=== PATIENT | female | born 1950 | race Caucasian/White ===

== ENCOUNTER 2021-11-10 20:26 | Inpatient (IN) | payer OTHER, MEDICARE ==
[2021-11-10 20:52] VITALS: BMI 28.0
[2021-11-10] MEDS ORDERED: ACETAMINOPHEN 1000 MG/100 ML BAG IVPB ONE (20:56)
[2021-11-10] MEDS ORDERED: DEXAMETHASONE SOD PHOSPHATE 10 MG/1 ML VIAL IVPUSH ONE (21:16)
[2021-11-10] MEDS ORDERED: DEXAMETHASONE SOD PHOSPHATE 10 MG/1 ML VIAL ONE (21:32)
[2021-11-10] MEDS ORDERED: ACETAMINOPHEN INJECTION 100 ML IVPB ONE (21:32)
[2021-11-10] MEDS ORDERED: VANCOMYCIN 1,000 MG in DEXTROSE 5%-WATER - 250 ML IVPB ONE (22:06)
[2021-11-10] MEDS ORDERED: PIPERACILLIN/TAZOB 4.5 GM 4.5 GM in DEXTROSE 5%-WATER 100 ML IVPB ONE (22:07)
[2021-11-10 22:17] LABS: VENOUS BASE EXCESS 2.7 mmol/L (-2-2); VENOUS O2 SATURATION 72.3 % (70-80); VENOUS PCO2 39.7 mmHg (38-52); VENOUS PH 7.448 (7.310-7.410)
[2021-11-10 22:18] LABS: BASO % 1.4 % (0-2.0); EOS % 0.5 % (0-4.5); HEMATOCRIT 36.1 % (32.4-45.2); HEMOGLOBIN 12.3 GM/dL (10.7-15.3); LYMPH % 44.7 % (8-40); MCH 30.8 pg (25.7-33.7); MEAN CELL VOLUME 90.6 fl (80-96); MEAN PLT VOLUME 8.1 fl (7.5-11.1); MONO % 26.9 % (3.8-10.2); NEUT % 26.5 % (42.8-82.8); PLATELET COUNT 201 10^3/uL (134-434); RBC 3.99 M/mm3 (3.60-5.2); RDW 13.9 % (11.6-15.6)
[2021-11-10 22:25] LABS: WHITE BLOOD COUNT 1.5 K/mm3 (4.0-10.0)
[2021-11-10] MEDS ORDERED: CEFEPIME 2 GM/100 ML BAG IVPB ONE (22:25)
[2021-11-10] MEDS ORDERED: CEFEPIME HCL/D5W 2 GM/50 ML BAG IVPB ONE (22:25)
[2021-11-10] MEDS ORDERED: VANCOMYCIN/WATER FOR INJ (PEG) 1,000 MG/200 ML BAG IVPB ONE ×2 (22:25)
[2021-11-10 22:27] LABS: INR 1.09 (0.83-1.09); PROTHROMBIN TIME (PATIENT) 12.5 SEC (9.7-13.0)
[2021-11-10] MEDS ORDERED: SODIUM CHLORIDE 0.9% 500 ML INFUS.BAG IV ONE ×2 (22:27→23:24)
[2021-11-10 22:30] LABS: ACTIVATED PTT 33.1 SECONDS (25.2-36.5)
[2021-11-10 22:44] LABS: CALCIUM 8.1 mg/dL (8.5-10.1)
[2021-11-10 22:45] LABS: ALBUMIN 2.8 g/dl (3.4-5.0); BLOOD UREA NITROGEN 15.4 mg/dL (7-18)
[2021-11-10 22:48] LABS: BILIRUBIN,DIRECT 0.1 mg/dL (0.0-0.2); CREATININE 0.4 mg/dL (0.55-1.3)
[2021-11-10 22:49] LABS: TOT PROT 6.8 g/dl (6.4-8.2)
[2021-11-10 22:50] LABS: BILIRUBIN,TOTAL 0.4 mg/dL (0.2-1)
[2021-11-10 22:56] LABS: ANISOCYTOSIS 1+; MACROCYTOSIS 0
[2021-11-10 23:51] LABS: EPI CELLS >36 /uL (0-25.1); HYALINE CASTS 9 /uL (0-3.1); URINE APPEARANCE CLOUDY; URINE BACTERIA 2068 /uL (0-1359); URINE BILIRUBIN NEGATIVE (NEGATIVE); URINE COLOR YELLOW; URINE GLUCOSE (UA) NEGATIVE (NEGATIVE); URINE KETONE NEGATIVE (NEGATIVE); URINE LEUK ESTERASE NEGATIVE (NEGATIVE); URINE NITRITE NEGATIVE (NEGATIVE); URINE PROTEIN 2+ (NEGATIVE); URINE RBC 2899 /uL (0-23.9); URINE WBC 51 /uL (0-25.8)
[2021-11-11] MEDS ORDERED: FLUORIDE DT PRN (01:42)
[2021-11-11] MEDS ORDERED: [UNRECOGNIZED DRUG - OTHER] PO SCH (01:45)
[2021-11-11 02:13] LABS: HEMATOCRIT 32.4 % (32.4-45.2); HEMOGLOBIN 10.9 GM/dL (10.7-15.3); MCH 30.7 pg (25.7-33.7); MCHC 33.5 g/dl (32.0-36.0); MEAN CELL VOLUME 91.5 fl (80-96); MEAN PLT VOLUME 8.4 fl (7.5-11.1); PLATELET COUNT 170 10^3/uL (134-434); RBC 3.54 M/mm3 (3.60-5.2)
[2021-11-11 02:16] LABS: WHITE BLOOD COUNT 1.4 K/mm3 (4.0-10.0)
[2021-11-11] MEDS ORDERED: REMDESIVIR 200 MG in SODIUM CHLORIDE 250 ML IVPB ONE (03:30)
[2021-11-11] MEDS ORDERED: SODIUM CHLORIDE 0.9% 1000 ML INFUS.BAG IV ONE (04:00)
[2021-11-11 04:56] LABS: ANISOCYTOSIS 1+; MACROCYTOSIS 0; OVALOCYTE 2+; TEAR DROP CELLS 1+
[2021-11-11] MEDS ORDERED: BACLOFEN 10 MG TABLET (FP) ONE (06:19)
[2021-11-11] MEDS ORDERED: GABAPENTIN 300 MG CAPSULE ONE (06:19)
[2021-11-11] MEDS: BACLOFEN 10 MG TABLET (FP) PO SCH ×3 (06:26→21:28)
[2021-11-11] MEDS: GABAPENTIN 300 MG CAPSULE PO SCH ×3 (06:26→21:28)
[2021-11-11 07:14] LABS: HEMATOCRIT 37.4 % (32.4-45.2); HEMOGLOBIN 12.3 GM/dL (10.7-15.3); MCH 30.4 pg (25.7-33.7); MCHC 32.9 g/dl (32.0-36.0); MEAN CELL VOLUME 92.2 fl (80-96); MEAN PLT VOLUME 8.7 fl (7.5-11.1); PLATELET COUNT 165 10^3/uL (134-434); RBC 4.06 M/mm3 (3.60-5.2); RDW 13.7 % (11.6-15.6)
[2021-11-11 07:26] LABS: WHITE BLOOD COUNT 1.3 K/mm3 (4.0-10.0)
[2021-11-11 07:46] LABS: ALBUMIN 2.5 g/dl (3.4-5.0); BLOOD UREA NITROGEN 13.7 mg/dL (7-18); CALCIUM 7.4 mg/dL (8.5-10.1); MAGNESIUM 1.9 mg/dL (1.8-2.4)
[2021-11-11 07:49] LABS: CREATININE 0.3 mg/dL (0.55-1.3); PHOSPHOROUS 2.9 mg/dL (2.5-4.9)
[2021-11-11 07:51] LABS: BILIRUBIN,TOTAL 0.4 mg/dL (0.2-1); TOT PROT 6.2 g/dl (6.4-8.2)
[2021-11-11] MEDS ORDERED: VANCOMYCIN/WATER FOR INJ (PEG) 1,000 MG/200 ML BAG IVPB ONE (10:00)
[2021-11-11] MEDS ORDERED: CEFEPIME 2 GM in DEXTROSE 5%-WATER - 100 ML IVPB ONE ×2 (10:00→11:15)
[2021-11-11] MEDS ORDERED: VANCOMYCIN 1 GM in D5W (PRE-DOCKED) 1,000 MG/250 ML IVPB ONE (10:00)
[2021-11-11 10:57] LABS: ANISOCYTOSIS 2+; MACROCYTOSIS 0; TEAR DROP CELLS 1+
[2021-11-11] MEDS ORDERED: CEFEPIME 2 GM in DEXTROSE 5%-WATER 100 ML IVPB ONE (11:15)
[2021-11-11] MEDS ORDERED: CEFEPIME HCL 2 GM VIAL (RESTRICTED TO ID) ONE ×2 (11:29→21:06)
[2021-11-11] MEDS ORDERED: DEXTROSE 5%-WATER 100 ML IVPB ONE ×2 (11:30→21:06)
[2021-11-11] MEDS: DEXAMETHASONE SOD PHOSPHATE 10 MG/1 ML VIAL IVPUSH SCH (11:49)
[2021-11-11] MEDS: ENOXAPARIN NA (PORCINE) 40 MG/0.4 ML DISP.SYRIN SQ SCH (11:49)
[2021-11-11] MEDS: PANTOPRAZOLE SODIUM 40 MG VIAL IVPUSH SCH (11:49)
[2021-11-11] MEDS: FLUoxetine HCL 20 MG CAPSULE PO SCH ×2 (12:30→13:50)
[2021-11-11] MEDS ORDERED: VANCOMYCIN 1 GM/200 ML PREMIX BAG IVPB ONE (21:07)
[2021-11-11] MEDS: ATORVASTATIN CA 10 MG TABLET (FP) PO SCH (21:27)
[2021-11-11] MEDS: clonazePAM 2 MG TABLET PO SCH (21:28)
[2021-11-11] MEDS: CEFEPIME 2 GM in DEXTROSE 5%-WATER 100 ML IVPB SCH (21:28)
[2021-11-12] MEDS ORDERED: DEXTROSE 5%-WATER 100 ML IVPB ONE ×3 (02:44→21:08)
[2021-11-12] MEDS ORDERED: CEFEPIME HCL 2 GM VIAL (RESTRICTED TO ID) ONE ×3 (02:44→21:08)
[2021-11-12] MEDS: CEFEPIME 2 GM in DEXTROSE 5%-WATER 100 ML IVPB SCH ×3 (04:13→21:16)
[2021-11-12] MEDS: GABAPENTIN 300 MG CAPSULE PO SCH ×3 (05:14→21:16)
[2021-11-12] MEDS: BACLOFEN 10 MG TABLET (FP) PO SCH ×3 (05:14→21:16)
[2021-11-12] MEDS ORDERED: VANCOMYCIN 1 GM/200 ML PREMIX BAG IVPB ONE ×2 (09:00→21:59)
[2021-11-12 09:44] LABS: HEMATOCRIT 36.9 % (32.4-45.2); HEMOGLOBIN 12.5 GM/dL (10.7-15.3); MCH 30.8 pg (25.7-33.7); MCHC 33.8 g/dl (32.0-36.0); MEAN CELL VOLUME 91.2 fl (80-96); MEAN PLT VOLUME 8.5 fl (7.5-11.1); PLATELET COUNT 216 10^3/uL (134-434); RBC 4.04 M/mm3 (3.60-5.2); RDW 13.7 % (11.6-15.6); WHITE BLOOD COUNT 2.9 K/mm3 (4.0-10.0)
[2021-11-12 10:00] LABS: CALCIUM 8.2 mg/dL (8.5-10.1)
[2021-11-12] MEDS ORDERED: REMDESIVIR 100 MG in SODIUM CHLORIDE 270 ML IVPB SCH (10:00)
[2021-11-12 10:01] LABS: BLOOD UREA NITROGEN 19.6 mg/dL (7-18)
[2021-11-12 10:04] LABS: CREATININE 0.5 mg/dL (0.55-1.3)
[2021-11-12] MEDS: DEXAMETHASONE SOD PHOSPHATE 10 MG/1 ML VIAL IVPUSH SCH (10:35)
[2021-11-12] MEDS: ENOXAPARIN NA (PORCINE) 40 MG/0.4 ML DISP.SYRIN SQ SCH (10:35)
[2021-11-12] MEDS: PANTOPRAZOLE SODIUM 40 MG VIAL IVPUSH SCH (10:35)
[2021-11-12] MEDS: FLUoxetine HCL 20 MG CAPSULE PO SCH (10:35)
[2021-11-12] MEDS: TIZANIDINE HCL 4 MG TABLET PO PRN (10:36)
[2021-11-12] MEDS: REMDESIVIR 100 MG in SODIUM CHLORIDE 250 ML IVPB SCH (10:37)
[2021-11-12] MEDS: clonazePAM 2 MG TABLET PO SCH (21:16)
[2021-11-12] MEDS: ATORVASTATIN CA 10 MG TABLET (FP) PO SCH (21:16)
[2021-11-13] MEDS: MELATONIN 5 MG TABLETS PO PRN ×2 (00:08→21:05)
[2021-11-13] MEDS ORDERED: DEXTROSE 5%-WATER 100 ML IVPB ONE ×3 (03:34→20:11)
[2021-11-13] MEDS ORDERED: CEFEPIME HCL 2 GM VIAL (RESTRICTED TO ID) ONE ×3 (03:34→20:11)
[2021-11-13] MEDS: CEFEPIME 2 GM in DEXTROSE 5%-WATER 100 ML IVPB SCH ×3 (03:46→20:54)
[2021-11-13] MEDS: BACLOFEN 10 MG TABLET (FP) PO SCH ×3 (05:52→21:03)
[2021-11-13] MEDS: GABAPENTIN 300 MG CAPSULE PO SCH ×3 (05:52→21:03)
[2021-11-13 09:16] LABS: HEMATOCRIT 34.8 % (32.4-45.2); HEMOGLOBIN 11.9 GM/dL (10.7-15.3); MCH 30.9 pg (25.7-33.7); MCHC 34.3 g/dl (32.0-36.0); MEAN CELL VOLUME 90.2 fl (80-96); MEAN PLT VOLUME 8.2 fl (7.5-11.1); PLATELET COUNT 211 10^3/uL (134-434); RBC 3.85 M/mm3 (3.60-5.2); RDW 14.2 % (11.6-15.6); WHITE BLOOD COUNT 4.1 K/mm3 (4.0-10.0)
[2021-11-13] MEDS ORDERED: VANCOMYCIN 1 GM in D5W (PRE-DOCKED) 1,000 MG/250 ML IVPB SCH (10:00)
[2021-11-13] MEDS: DEXAMETHASONE SOD PHOSPHATE 10 MG/1 ML VIAL IVPUSH SCH (10:22)
[2021-11-13] MEDS: ENOXAPARIN NA (PORCINE) 40 MG/0.4 ML DISP.SYRIN SQ SCH (10:22)
[2021-11-13] MEDS: REMDESIVIR 100 MG in SODIUM CHLORIDE 250 ML IVPB SCH (10:23)
[2021-11-13] MEDS: TIZANIDINE HCL 4 MG TABLET PO PRN (10:23)
[2021-11-13] MEDS: FLUoxetine HCL 20 MG CAPSULE PO SCH (10:23)
[2021-11-13] MEDS: PANTOPRAZOLE SODIUM 40 MG VIAL IVPUSH SCH (10:23)
[2021-11-13] MEDS ORDERED: VANCOMYCIN/WATER FOR INJ (PEG) 1,000 MG/200 ML BAG IVPB SCH ×2 (10:30→22:30)
[2021-11-13 10:44] LABS: CALCIUM 8.9 mg/dL (8.5-10.1)
[2021-11-13 10:45] LABS: BLOOD UREA NITROGEN 19.8 mg/dL (7-18)
[2021-11-13 10:48] LABS: CREATININE 0.4 mg/dL (0.55-1.3)
[2021-11-13] MEDS: clonazePAM 2 MG TABLET PO SCH (21:03)
[2021-11-13] MEDS: ATORVASTATIN CA 10 MG TABLET (FP) PO SCH (21:03)
[2021-11-13] MEDS: ACETAMINOPHEN 325 MG TABLET (FP) PO PRN (21:05)
[2021-11-14] MEDS ORDERED: DEXTROSE 5%-WATER 100 ML IVPB ONE ×3 (02:36→21:08)
[2021-11-14] MEDS ORDERED: CEFEPIME HCL 2 GM VIAL (RESTRICTED TO ID) ONE ×3 (02:36→21:07)
[2021-11-14] MEDS: CEFEPIME 2 GM in DEXTROSE 5%-WATER 100 ML IVPB SCH ×3 (04:55→21:33)
[2021-11-14] MEDS: GABAPENTIN 300 MG CAPSULE PO SCH ×3 (05:45→21:34)
[2021-11-14] MEDS: BACLOFEN 10 MG TABLET (FP) PO SCH ×3 (05:45→21:34)
[2021-11-14] MEDS: DEXAMETHASONE SOD PHOSPHATE 10 MG/1 ML VIAL IVPUSH SCH (10:10)
[2021-11-14] MEDS: PANTOPRAZOLE SODIUM 40 MG VIAL IVPUSH SCH (10:11)
[2021-11-14] MEDS: ENOXAPARIN NA (PORCINE) 40 MG/0.4 ML DISP.SYRIN SQ SCH (10:11)
[2021-11-14] MEDS: FLUoxetine HCL 20 MG CAPSULE PO SCH (10:11)
[2021-11-14] MEDS: REMDESIVIR 100 MG in SODIUM CHLORIDE 250 ML IVPB SCH (10:11)
[2021-11-14] MEDS: MELATONIN 5 MG TABLETS PO PRN (21:33)
[2021-11-14] MEDS: ATORVASTATIN CA 10 MG TABLET (FP) PO SCH (21:33)
[2021-11-14] MEDS: clonazePAM 2 MG TABLET PO SCH (21:34)
[2021-11-15] MEDS ORDERED: DEXTROSE 5%-WATER 100 ML IVPB ONE ×3 (04:07→19:44)
[2021-11-15] MEDS ORDERED: CEFEPIME HCL 2 GM VIAL (RESTRICTED TO ID) ONE ×3 (04:07→19:43)
[2021-11-15] MEDS: CEFEPIME 2 GM in DEXTROSE 5%-WATER 100 ML IVPB SCH ×3 (05:26→19:55)
[2021-11-15] MEDS: GABAPENTIN 300 MG CAPSULE PO SCH ×3 (05:27→21:52)
[2021-11-15] MEDS: BACLOFEN 10 MG TABLET (FP) PO SCH ×3 (05:27→21:52)
[2021-11-15 07:56] LABS: CALCIUM 8.5 mg/dL (8.5-10.1)
[2021-11-15 07:57] LABS: ALBUMIN 2.3 g/dl (3.4-5.0)
[2021-11-15 07:59] LABS: CREATININE 0.5 mg/dL (0.55-1.3)
[2021-11-15 08:00] LABS: BILIRUBIN,TOTAL 0.4 mg/dL (0.2-1); TOT PROT 6.2 g/dl (6.4-8.2)
[2021-11-15] MEDS: ENOXAPARIN NA (PORCINE) 40 MG/0.4 ML DISP.SYRIN SQ SCH (10:25)
[2021-11-15] MEDS: DEXAMETHASONE SOD PHOSPHATE 10 MG/1 ML VIAL IVPUSH SCH (10:25)
[2021-11-15] MEDS: PANTOPRAZOLE SODIUM 40 MG VIAL IVPUSH SCH (10:25)
[2021-11-15] MEDS: FLUoxetine HCL 20 MG CAPSULE PO SCH (10:26)
[2021-11-15] MEDS: REMDESIVIR 100 MG in SODIUM CHLORIDE 250 ML IVPB SCH (10:33)
[2021-11-15] MEDS: ACETAMINOPHEN 325 MG TABLET (FP) PO PRN (19:50)
[2021-11-15] MEDS: MELATONIN 5 MG TABLETS PO PRN (21:51)
[2021-11-15] MEDS: ATORVASTATIN CA 10 MG TABLET (FP) PO SCH (21:52)
[2021-11-15] MEDS: clonazePAM 2 MG TABLET PO SCH (21:52)
[2021-11-16] MEDS ORDERED: CEFEPIME HCL 2 GM VIAL (RESTRICTED TO ID) ONE ×2 (04:03→09:25)
[2021-11-16] MEDS ORDERED: DEXTROSE 5%-WATER 100 ML IVPB ONE ×2 (04:04→09:25)
[2021-11-16] MEDS: CEFEPIME 2 GM in DEXTROSE 5%-WATER 100 ML IVPB SCH (04:07)
[2021-11-16] MEDS: GABAPENTIN 300 MG CAPSULE PO SCH ×2 (05:24→13:05)
[2021-11-16] MEDS: BACLOFEN 10 MG TABLET (FP) PO SCH ×2 (05:24→13:05)
[2021-11-16 07:26] VITALS: BP 115/69; PULSE 58; RESP 18; TEMP 98.9
[2021-11-16 08:41] LABS: BASO % 0.4 % (0-2.0); EOS % 0.9 % (0-4.5); HEMATOCRIT 33.6 % (32.4-45.2); HEMOGLOBIN 11.6 GM/dL (10.7-15.3); LYMPH % 36.3 % (8-40); MCHC 34.4 g/dl (32.0-36.0); MEAN CELL VOLUME 90.1 fl (80-96); MONO % 11.7 % (3.8-10.2); NEUT % 50.7 % (42.8-82.8); PLATELET COUNT 229 10^3/uL (134-434); RBC 3.73 M/mm3 (3.60-5.2); RDW 13.8 % (11.6-15.6); WHITE BLOOD COUNT 5.9 K/mm3 (4.0-10.0)
[2021-11-16 08:59] LABS: CALCIUM 8.8 mg/dL (8.5-10.1)
[2021-11-16 09:00] LABS: BLOOD UREA NITROGEN 24.5 mg/dL (7-18)
[2021-11-16 09:03] LABS: CREATININE 0.3 mg/dL (0.55-1.3)
[2021-11-16] MEDS: ENOXAPARIN NA (PORCINE) 40 MG/0.4 ML DISP.SYRIN SQ SCH (09:19)
[2021-11-16] MEDS: DEXAMETHASONE SOD PHOSPHATE 10 MG/1 ML VIAL IVPUSH SCH (09:19)
[2021-11-16] MEDS: FLUoxetine HCL 20 MG CAPSULE PO SCH (09:19)
[2021-11-16] MEDS: PANTOPRAZOLE SODIUM 40 MG VIAL IVPUSH SCH (09:19)
[2021-11-16] MEDS: ACETAMINOPHEN 325 MG TABLET (FP) PO PRN (13:04)
== END 2021-11-16 15:11 | disposition home or self-care (01) | DRG 871 ==
LOC: JER 20:26 → JERBED 21:17 → J7W 11-11 09:34
PROVIDERS: ADMIT Internal Medicine; ATTEND Internal Medicine
PROC: XW033E5 Introduction of Remdesivir Anti-infective into Peripheral Vein, Percutaneous Approach, New Technology Group 5 (ICD-10-PCS; principal; 2021-11-11)
DX: A41.9 Sepsis, unspecified organism (principal); U07.1 COVID-19; J96.01 Acute respiratory failure with hypoxia; R53.2 Functional quadriplegia; I24.8 Other forms of acute ischemic heart disease; J98.11 Atelectasis; G35 Multiple sclerosis; Z74.01 Bed confinement status; I10 Essential (primary) hypertension; D50.9 Iron deficiency anemia, unspecified; M21.371 Foot drop, right foot; D70.9 Neutropenia, unspecified; R50.81 Fever presenting with conditions classified elsewhere; R31.9 Hematuria, unspecified
CPT/HCPCS: 0241U-QW; 36415; 71045-TC-FY; 71250-TC; 80048; 80053; 81003; 82248; 82550; 82728; 82803; 83605; 83615; 83735; 84100; 84484; 85025; 85027; 85610; 85651; 85730; 86140; 87040; 87086; 87186; 93005; 93010; 93306-TC; 94761; 99291; C9399; G0480; J0475; J1100